=== PATIENT | female | born 1990 | race Caucasian/White ===

== ENCOUNTER 2023-11-08 01:08 | Inpatient (IN) | payer OTHER ==
[2023-11-08 02:16] LABS: Hematocrit 35.3 % (34.9-44.5); Hemoglobin 11.6 g/dL (12.0-15.5); Mean Corpuscular HGB CONC 32.9 g/dL (32.0-36.0); Mean Corpuscular Hemoglobin 26.4 pg (27.0-33.0); Mean Corpuscular Volume 80.2 fl (81.6-98.3); Mean Platelet Volume 9.6 fl (7.4-10.4); Platelet Count 432 10x3/uL (150-450); RBC Distribution Width 15.5 % (11.5-14.5); White Blood Cell (WBC) Count 12.9 10x3/uL (3.5-10.5)
[2023-11-08 02:22] VITALS: BMI 55.0
[2023-11-08] MEDS ORDERED: fentaNYL 50 mcg/mL 1 mL Vial SLOW IVP PRN (02:29)
[2023-11-08] MEDS ORDERED: Zolpidem Tartrate 5 MG TAB PO PRN (02:30)
[2023-11-08] MEDS ORDERED: Carboprost 250 MCG/ML AMP IM PRN (02:30)
[2023-11-08] MEDS ORDERED: Lidocaine 1% (PF) 30 ML VIAL SC PRN (02:30)
[2023-11-08] MEDS ORDERED: Oxytocin 30 units/NS 500 ML 500 ML IV SCH ×2 (02:30→05:30)
[2023-11-08] MEDS ORDERED: hydrALAZINE 20 MG/ML VIAL SLOW IVP PRN ×2 (02:30→05:28)
[2023-11-08] MEDS ORDERED: Lactated Ringer's 1,000 ML IV SCH (02:30)
[2023-11-08] MEDS ORDERED: HYDROcodone/Acetaminophen 5/325 mg Tablet PO PRN ×2 (02:30)
[2023-11-08] MEDS ORDERED: Misoprostol 200 MCG TAB RC PRN (02:30)
[2023-11-08] MEDS ORDERED: Ibuprofen 800 MG TAB PO PRN (02:30)
[2023-11-08] MEDS ORDERED: Promethazine HCl 25 MG/ML VIAL IM PRN ×2 (02:30→03:38)
[2023-11-08] MEDS ORDERED: Oxytocin 30 units/NS 500 ML 500 ML IVPB SCH (02:30)
[2023-11-08] MEDS ORDERED: Acetaminophen 500 MG TAB PO PRN (02:30)
[2023-11-08] MEDS ORDERED: Methylergonovine 0.2 MG/ML VIAL IM PRN ×2 (02:30→05:28)
[2023-11-08] MEDS ORDERED: Ondansetron PF 4 MG/2 ML Vial IVP PRN ×3 (02:30→05:28)
[2023-11-08] MEDS ORDERED: Diphenoxylate HCl/Atropine Tablet PO PRN ×2 (02:30)
[2023-11-08] MEDS: Penicillin G Potassium 5 MILL.UNITS in Sodium Chloride 0.9% 100 ML IVPB SCH (02:42)
[2023-11-08] MEDS: Lactated Ringer's 1,000 ML IV SCH (02:46)
[2023-11-08 03:22] LABS: HBSAg Index 0.19 S/CO (0-0.99); Hep B Surf Ag - L&D Non-Reactive S/CO (NonReactive)
[2023-11-08 03:23] LABS: Syphilis Antibody Nonreactive (Nonreactive); Syphilis Antibody Index 0.07 S/CO (<1.00 Non-Reactive)
[2023-11-08] MEDS ORDERED: ePHEDrine Sulfate 50 MG/10 ML VIAL SLOW IVP PRN (03:38)
[2023-11-08] MEDS ORDERED: Moisturizing Cream (Eucerin) 113 GM JAR TOP PRN (03:38)
[2023-11-08] MEDS ORDERED: Lactated Ringer's 500 ML IV PRN (03:38)
[2023-11-08] MEDS ORDERED: Naloxone HCl 0.4 mg/ml Vial IVP PRN ×2 (03:38)
[2023-11-08] MEDS ORDERED: diphenhydrAMINE 50 MG/ML VIAL IVP PRN (03:38)
[2023-11-08] MEDS ORDERED: Acetaminophen 325 MG TAB PO PRN (03:38)
[2023-11-08] MEDS ORDERED: Communication Order-Pharmacy FS SCH (03:45)
[2023-11-08] MEDS ORDERED: fentaNYL 2 mcg/Ropivacaine 0.2% Epidural 100 ML CADD EPIDURAL SCH (03:45)
[2023-11-08] MEDS ORDERED: Lanolin Ointment 7 GM TUBE TOP PRN (05:28)
[2023-11-08] MEDS ORDERED: Bisacodyl 10 MG SUPP PR PRN (05:28)
[2023-11-08] MEDS ORDERED: Milk Of Magnesia 30 ML UDCUP PO PRN (05:28)
[2023-11-08] MEDS ORDERED: Misoprostol 200 MCG TAB VAG PRN (05:28)
[2023-11-08] MEDS ORDERED: diphenhydrAMINE 25 MG CAP PO PRN (05:28)
[2023-11-08] MEDS ORDERED: Benzocaine-Menthol 82.5 ML CAN TOP PRN (05:28)
[2023-11-08] MEDS ORDERED: Preparation H Ointment 28 GM TUBE PR PRN (05:28)
[2023-11-08] MEDS ORDERED: Penicillin G 2.5 MILL.units 2.5 MILL.UNITS in Premix 1 BAG IVPB SCH (06:30)
[2023-11-08] MEDS ORDERED: Bupivacaine 0.25% HCL 30 ML VIAL ONE (08:00)
[2023-11-08] MEDS: fentaNYL/Ropivacaine Epidural 100 ML ONE (08:41)
[2023-11-08] MEDS: fentaNYL 50 mcg/mL 1 mL Vial ONE (08:41)
[2023-11-08] MEDS: Dexmedetomidine 200 MCG/2 ML VIAL ONE (08:41)
[2023-11-08] MEDS: Boostrix 0.5 ML (Tdap) VIAL (>/=7 yrs of age) IM ONE (09:05)
[2023-11-08] MEDS: Ferrous Sulfate 325 MG TAB PO SCH (09:06)
[2023-11-08] MEDS: Prenatal Vitamin 1 TAB PO SCH (09:06)
[2023-11-08] MEDS: Ibuprofen 800 MG TAB PO SCH (09:06)
[2023-11-08] MEDS: Docusate 100 MG CAP PO SCH (09:06)
[2023-11-08 13:42] LABS: Hematocrit 27.5 % (34.9-44.5); Hemoglobin 9.2 g/dL (12.0-15.5)
[2023-11-08] MEDS: HYDROcodone/Acetaminophen 5/325 mg Tablet PO PRN (21:10)
[2023-11-09] MEDS: HYDROcodone/Acetaminophen 5/325 mg Tablet PO PRN (03:14)
[2023-11-09] MEDS ORDERED: HYDROcodone/Acetaminophen 5/325 mg Tablet PO PRN ×2 (04:00)
[2023-11-10 07:27] VITALS: BP 137/77; TEMP 99.4
== END 2023-11-10 11:50 | disposition home or self-care (01) | DRG 806 ==
LOC: CSHLD/OP 01:08 → CSHLD 01:51 → CSHPP 08:16 → UNDODISIN 16:37
PROVIDERS: ADMIT Obstetrics & Gynecology; ATTEND Obstetrics & Gynecology
PROC: 10E0XZZ Delivery of Products of Conception, External Approach (ICD-10-PCS; principal; 2023-11-08)
PROC: 0KQM0ZZ Repair Perineum Muscle, Open Approach (ICD-10-PCS; 2023-11-08)
DX: O42.02 Full-term premature rupture of membranes, onset of labor within 24 hours of rupture (principal); O72.1 Other immediate postpartum hemorrhage; Z37.0 Single live birth; O98.52 Other viral diseases complicating childbirth; Z3A.38 38 weeks gestation of pregnancy; E66.01 Morbid (severe) obesity due to excess calories; O99.214 Obesity complicating childbirth; B00.9 Herpesviral infection, unspecified; O99.824 Streptococcus B carrier state complicating childbirth; O70.1 Second degree perineal laceration during delivery
CPT/HCPCS: 36415; 51701; 85027; 86780; 86850; 86900; 86901; 87340; 99285; J0665; J2540; J3010; J3490; J7120